=== PATIENT | female | born 1990 | race African-American/Black ===

== ENCOUNTER 2017-09-26 21:43 | Emergency (ER) | payer SELFPAY | END 2017-09-26 22:57 | disposition home or self-care (01) | LOC: ERS 21:43 | DX: S46.912A Strain of unspecified muscle, fascia and tendon at shoulder and upper arm level, left arm, initial encounter (principal); X58.XXXA Exposure to other specified factors, initial encounter | CPT/HCPCS: 99283 ==

== ENCOUNTER 2018-07-19 19:36 | Emergency (ER) | payer SELFPAY ==
[2018-07-19 20:17] LABS: #Eosinphils 0.2 thou/uL (0.0-0.7); #Lymphocytes 2.8 thou/uL (1.20-3.40); #Monocytes 0.7 thou/uL (0.11-0.59); #Neutrophils 8.3 thou/uL (1.40-6.50); %Basophils 0.3 % (0.0-1.0); %Eosinophils 1.4 % (0.0-10.0); %Lymphocytes 23.2 % (21.0-51.0); %Monocytes 6.2 % (0.0-10.0); Hemoglobin 12.7 g/dL (12.0-16.0); Mean Corpuscular HGB CONC 33.4 g/dL (32.0-36.0); Mean Corpuscular Hemoglobin 32.1 pg (27.0-31.0); Mean Corpuscular Volume 96.2 fL (78.0-98.0); Mean Platelet Volume 6.8 fL (7.4-10.4); Platelet Count 355 thou/uL (130-400); RBC Distribution Width 12.5 % (11.5-14.5); Red Blood Cell (RBC) Count 3.96 mill/uL (4.20-5.40)
[2018-07-19 20:44] LABS: ALT (SGPT) Less than 7 U/L (8-55); AST (SGOT) 10 U/L (5-34); Albumin 3.8 g/dL (3.5-5.0); Alkaline Phosphatase 100 U/L (40-150); Anion Gap 12 mmol/L (10-20); BUN (Urea Nitrogen) 11 mg/dL (7.0-18.7); Bilirubin, Total Less than 0.2 mg/dL (0.2-1.2); Calc. Creatinine Clearance 0 mL/min (70-130); Calcium 9.9 mg/dL (7.8-10.44); Carbon Dioxide 23 mmol/L (22-29); Chloride 105 mmol/L (98-107); Estimated GFR-MDRD Greater than 90; Glucose 86 mg/dL (70-105); Potassium 3.5 mmol/L (3.5-5.1); Protein, Total 6.8 g/dL (6.0-8.3); Sodium 136 mmol/L (136-145)
[2018-07-19 21:28] LABS: Bilirubin Negative (Negative); Blood, Urine Negative (Negative); Clarity CLOUDY (Clear); Glucose, Urine (Dipstick) Negative (Negative); Leukocyte Negative (Negative); Nitrite Positive (Negative); Protein, Urine (Dipstick) Negative (Neg-Trace); pH, Urine 6.5 (5.0-9.0)
[2018-07-19 21:29] LABS: Pregnancy Test - Urine (BHCG) POSITIVE (Negative); Pregu Control Background? CLEAR/WHITE (CLR/WHITE); Pregu Control Bar Appear? YES (CONTROL BAR)
[2018-07-19 21:30] LABS: Bacteria/HPF 4+ HPF (None Seen); Hyaline Casts/LPF 0-3 HYALINE CAST LPF (0-3 Hyaline); Pathc Cast-AUWi Flag 0.29 (0-2.49); Squamous Epithelial 0-3 HPF (0-3); WBC/HPF 0-3 HPF (0-3)
[2018-07-19] MEDS ORDERED: Ondansetron PF 4 MG/2 ML Vial ONE (22:07)
[2018-07-19] MEDS ORDERED: cefTRIAXone\\ROCEPHIN 1 GM VIAL ONE (22:07)
[2018-07-19] MEDS ORDERED: Acetaminophen 500 MG TAB ONE (22:31)
--- NOTE | 2018-07-20 08:42 | ULT ---
PRELIMINARY REPORT/[facility]/EMERGENTY AFTER-HOURS PROCEDURE US , Transvaginal EXAM DATE/TIME: 07/20/2018 12:06 AM CLINICAL HISTORY: 27 years old, female; first trimester 8 wks complicated by abdominal or pelvic pain TECHNIQUE: Real-time transvaginal obstetrical ultrasound of the maternal pelvis and a first trimester with image documentation. Transvaginal imaging was used for better evaluation of the fetus and adnexa . COMPARISON: No relevant prior studies available. FINDINGS: Single intrauterine gestational sac with internal crown rump length measurement of 2.01 cm yuan esponding to a gestational age of 8 weeks, 4 days. heart rate is 171 beats per minute. A yolk sac is identified. No subchorionic hemorrhage. Small amount of free pelvic fluid. 5.1 x 3.0 x 3.2 cm left ovarian simple cyst. Otherwise normal normal ovaries. IMPRESSION: 1. Single live intrauterine approximately 8 weeks, 4 days. 2. EDC = 02/25/2019. 3. Small amount of free pelvic fluid. 4. 5.1 x 3.0 x 3.2 cm left ovarian simple cyst. Thank you for allowing us to participate in the care of your patient. Dictated and Authenticated by: Sadiq Love MD 07/20/2018 12:41 AM Central Time ([place] & [place]) FINAL REPORT TRANSVAGINAL OBSTETRICAL ULTRASOUND: TECHNIQUE: Palacio scale, color Doppler, and spectral Doppler images were obtained. FINDINGS: I agree with the preliminary report provided. There is a single live intrauterine gestation with a f etal pole identified. Cardiac activity is noted at 171 b.p.m. [place]-rump length was 2.01 cm giving an estimated gestational age of 8 weeks and 4 days. Estimated due date is 02/25/2019. There is a fair ly prominent simple-appearing cyst within the left ovary measuring 5 cm. There is normal flow to the right and left ovary. Yolk sac is identified. Mild vascularity surrounds the gestational sac likely related to developing placenta. Very mild free fluid is present within the pelvis. IMPRESSION: 1. Single live intrauterine gestation. 2. Mild free fluid in the pelvis. 3. Simple cyst in the left ovary. POS: [facility]
== END 2018-07-20 01:08 | disposition home or self-care (01) ==
LOC: ERS 19:36
DX: O23.41 Unspecified infection of urinary tract in pregnancy, first trimester (principal)
CPT/HCPCS: 36415; 76856; 80053; 81003; 81015; 81025; 83690; 84702; 85025; 86900; 86901; 87077; 87086; 87186; 96361; 96365; 96375; J0696; J2405

== ENCOUNTER 2018-09-22 08:45 | Outpatient (CLI) | payer OTHER ==
--- NOTE | 2018-09-22 09:49 | ULT ---
FOB ultrasound Multiple longitudinal and transverse images of an intrauterine is obtained using multi hert z curvilinear transducer. Real time, color flow and M-mode sonography demonstrates a viable intrauter ine with the fetus in a breech presentation. The placenta is anterior. Cardiac activity qiana sures 147 bpm. Biometrics: Biparietal diameter equals 36 mm =17 weeks 2 days Head circumference 146 mm =17 weeks 6 days. Abdominal circumference equals 119 mm = 17 weeks 5 days. Femur length equals 25 mm = 17 weeks 4 days. Composite equals 17 weeks 5 days with an estimated weight of 201 g. (9%). anatomic survey demonstrates intracranial structures, spine, four-chamber heart, stomach, kidne ys, upper and lower extremities, lips and nose to be grossly unremarkable. Cervical length measures 3.3 cm. Amniotic fluid volume appeared to be within normal limits although ARLEEN definitively was not measured. IMPRESSION: Viable intrauterine .
== END 2018-09-22 08:46 | disposition home or self-care (01) ==
LOC: BICULT 08:45
PROVIDERS: ATTEND Family Medicine
DX: O09.212 Supervision of pregnancy with history of pre-term labor, second trimester (principal); Z3A.17 17 weeks gestation of pregnancy
CPT/HCPCS: 76805

== ENCOUNTER 2018-10-13 09:44 | Outpatient (CLI) | payer MEDICAID ==
--- NOTE | 2018-10-13 11:30 | ULT ---
EXAM: OB ultrasound COMPARISON: 09/22/2018 HISTORY: female. Evaluate size, dates, and anatomy. TECHNIQUE: Multiplanar grayscale and color Doppler transabdominal sonographic images are obtained. FINDINGS: There is a single intrauterine gestation in cephalic presentation. Cardiac Doppler demonstr ates heart tones with a heart rate of 147 beats per minute. The placenta is located anteriorly without evidence of placenta previa. Subjectively, there is a normal amount of amniotic fl uid in amniotic fluid index was not calculated. The cervical length based on transabdominal imaging measures 3.72 centimeters. biometry measurements: BPD 4.86 cm -- 20 weeks 5 days HC 17.95 cm -- 20 weeks 3 days AC 15.22 cm -- 20 weeks 4 days FL 3.39 cm -- 20 weeks 5 days The estimated gestational age by ultrasound is 20 weeks 5 days with an MARICRUZ on02/25/2019. Gestational ag e by the last menstrual period is 20 weeks 6 days. The estimated weight by ultrasound is 359 g (13 ounces). This represents 28 percentile for feta l weight. A 4 chambered heart is visualized. The cerebellum, visualized portions of the spine, kidneys, u rinary bladder, and cord insertion demonstrate a normal sonographic appearance. A three-vessel cord is not visualized, but there is flow on either side of the urinary bladder sugges ting a three-vessel cord.. No anomalies are seen. IMPRESSION: 1. Single intrauterine gestation in cephalic presentation with heart tones documented. Estimat ed gestational age by ultrasound is 20 weeks 5 days. 2. Estimated weight is 359 g (13 ounces).
== END 2018-10-13 09:45 | disposition home or self-care (01) ==
LOC: BICULT 09:44
PROVIDERS: ATTEND Family Medicine
DX: O09.212 Supervision of pregnancy with history of pre-term labor, second trimester (principal); Z3A.20 20 weeks gestation of pregnancy
CPT/HCPCS: 76805

== ENCOUNTER 2018-11-23 01:45 | Day surgery (SDC) | payer OTHER ==
[2018-11-23 02:37] VITALS: BP 126/68; TEMP 98.1; BMI 27.4
--- NOTE | 2018-11-23 06:29 | PRG ---
DATE OF SERVICE: 11/23/2018 PRIMARY OB: Jose Tom MD. CHIEF COMPLAINT: Abdominal pains. HISTORY OF PRESENT ILLNESS: The patient is a 27-year-old G4, P3, female with an intrauterine at 26 weeks and 5 days, who presented to Labor and Delivery after waking up and feeling abdominal cramping. She reports that she has a history of a delivery and has been on progesterone shots this . The patient does report that since coming to the hospital, her cramping has gotten better. Her main concern is that she was told she had a shortened cervix about a month ago and is worried that she may be worsening. The patient denies any recent illness, fever, fall, headache, chest pain, shortness of breath, nausea, vomiting, diarrhea, or constipation. Denies any hip problems, knee problems, muscle weakness. Denies any new rashes. Denies vaginal bleeding or leakage of fluid or urinary urgency or frequency. PAST MEDICAL HISTORY: Negative. PAST SURGICAL HISTORY: Negative. ALLERGIES: NO KNOWN DRUG ALLERGIES. MEDICATIONS: The Pam progesterone shot that she gets on Tuesdays and vitamins. SOCIAL HISTORY: Denies drug, alcohol, tobacco use. OB LABS: Unavailable at time of dictation. REVIEW OF SYSTEMS: Per HPI. PHYSICAL EXAMINATION: VITAL SIGNS: Blood pressure 118/64, heart rate of 100, respiratory rate 18, saturating 98% on room air, temperature 98.1. GENERAL: She appears to be in no acute distress. She is alert and oriented, cooperative, and pleasant to interact with. HEAD: Normocephalic, atraumatic. LUNGS: Clear to auscultation bilaterally. HEART: Has regular rate and rhythm. ABDOMEN: Soft and gravid. EXTREMITIES: Nontender, nonedematous. : Deferred. heart tracing shows the fetus in the baseline in the 140s with moderate long-term variability and appropriate for 26 week gestation. No decelerations. Tocometer does not show any contraction pattern over the course of 2 hours. An ultrasound was ordered for cervical length and resulted in the cervix ranging from 2.6 to 3.5 cm. ASSESSMENT AND PLAN: The patient is a 27-year-old multiparous female with an intrauterine at 26 weeks and 5 days, and a history of delivery on [place]. Cervical length at this time is within normal limits. I was able to share the findings with Ms. Wood and shared with her, at this time there is no evidence that she is at increased risk for early delivery apart from her history. The patient is feeling better and is being discharged to home. Fetus is reassuring for gestational age. She has an appointment with Dr. Jose Tom on Friday, which she has been encouraged to keep. Job ID: [id number]
--- NOTE | 2018-11-23 08:01 | ULT ---
LIMITED OBSTETRICAL ULTRASOUND FOR CERVICAL LENGTH WITH A HISTORY OF LABOR: COMPARISON: Prior exam dated 10/13/2018. FINDINGS: The cervical length was 3.1 cm. Small amount of fluid is seen within the proximal aspect of the endo cervical canal. The fetus is in vertex presentation. IMPRESSION: Limited obstetrical ultrasound for cervical length. The cervical length measures 3.1 cm with the sma ll amount of proximal endocervical funneling. POS: [facility]
== END 2018-11-23 04:34 | disposition home or self-care (01) ==
LOC: L&D/OP 01:45
PROVIDERS: ATTEND Family Medicine
DX: O99.89 Other specified diseases and conditions complicating pregnancy, childbirth and the puerperium (principal); R10.9 Unspecified abdominal pain; Z3A.26 26 weeks gestation of pregnancy; Z87.51 Personal history of pre-term labor
CPT/HCPCS: 99282

== ENCOUNTER 2019-04-20 08:30 | Emergency (ER) | payer OTHER ==
[2019-04-20 08:54] LABS: Bacteria/HPF None Seen HPF (None Seen); Bilirubin Negative (Negative); Blood, Urine 3+ (Negative); Clarity Clear (Clear); Glucose, Urine (Dipstick) Normal (Negative); Leukocyte 75 Leu/uL (Negative); Nitrite Negative (Negative); Protein, Urine (Dipstick) Negative (Neg-Trace); RBC/HPF Greater than 50 HPF (0-3); Urobilinogen Normal mg/dL (Less than 2)
[2019-04-20 09:04] LABS: #Basophils 0.1 thou/uL (0.0-0.2); #Eosinphils 0.1 thou/uL (0.0-0.7); #Lymphocytes 2.9 thou/uL (1.20-3.40); #Monocytes 0.3 thou/uL (0.11-0.59); #Neutrophils 3.1 thou/uL (1.40-6.50); %Basophils 1.1 % (0.0-1.0); %Eosinophils 1.4 % (0.0-10.0); %Monocytes 4.5 % (0.0-10.0); Hemoglobin 13.3 g/dL (12.0-16.0); Mean Corpuscular HGB CONC 32.2 g/dL (32.0-36.0); Mean Platelet Volume 7.5 fL (7.4-10.4); Platelet Count 364 thou/uL (130-400); RBC Distribution Width 13.7 % (11.5-14.5); Red Blood Cell (RBC) Count 4.45 mill/uL (4.20-5.40); White Blood Cell (WBC) Count 6.5 thou/uL (4.8-10.8)
[2019-04-20 09:19] LABS: ALT (SGPT) 7 U/L (8-55); AST (SGOT) 11 U/L (5-34); Albumin 4.2 g/dL (3.5-5.0); Alkaline Phosphatase 106 U/L (40-110); Anion Gap 11 mmol/L (10-20); BUN (Urea Nitrogen) 9 mg/dL (7.0-18.7); Bilirubin, Total 0.3 mg/dL (0.2-1.2); Calc. Creatinine Clearance 0 mL/min (70-130); Calcium 9.1 mg/dL (7.8-10.44); Carbon Dioxide 25 mmol/L (22-29); Chloride 106 mmol/L (98-107); Estimated GFR-MDRD Greater than 90; Globulin 2.8 g/dL (2.4-3.5); Glucose 94 mg/dL (70-105); Lipase 18 U/L (8-78); Potassium 3.7 mmol/L (3.5-5.1); Sodium 138 mmol/L (136-145)
[2019-04-20 09:19] LABS: Pregnancy Test - Urine (BHCG) Negative (Negative); Pregu Control Background? CLEAR/WHITE (CLR/WHITE); Pregu Control Bar Appear? YES (CONTROL BAR); Specific Gravity 1.017 (1.002-1.036)
[2019-04-20] MEDS ORDERED: Ondansetron PF 4 MG/2 ML Vial ONE (09:26)
[2019-04-20] MEDS ORDERED: Ketorolac Tromethamine 30 MG/ML VIAL ONE (09:26)
[2019-04-20] MEDS ORDERED: Dicyclomine 20 MG TAB ONE (09:34)
[2019-04-20] MEDS ORDERED: Ondansetron ODT 4 MG TAB ONE (09:34)
--- NOTE | 2019-04-20 09:49 | ULT ---
RIGHT UPPER QUADRANT ULTRASOUND: Date: 04/20/19 HISTORY: Abdominal pain. FINDINGS: The liver, gallbladder, right kidney, and pancreas appear normal. The common bile duct measures 6-7 m m in diameter. No free fluid is seen in Morison's pouch. IMPRESSION: Unremarkable exam. POS: [facility]
== END 2019-04-20 10:37 | disposition home or self-care (01) ==
LOC: ERS 08:30
DX: R10.84 Generalized abdominal pain (principal); R11.0 Nausea; R10.811 Right upper quadrant abdominal tenderness; R10.816 Epigastric abdominal tenderness
CPT/HCPCS: 36415; 76705; 80053; 81003; 81015; 81025; 83690; 85025; J1885; J2405; Q0162

== ENCOUNTER 2020-04-11 21:50 | Emergency (ER) | payer OTHER ==
[2020-04-11] MEDS ORDERED: Ketorolac Tromethamine 30 MG/ML VIAL ONE (22:48)
== END 2020-04-11 23:11 | disposition home or self-care (01) ==
LOC: ERS 21:50
DX: M25.552 Pain in left hip (principal); X50.0XXA Overexertion from strenuous movement or load, initial encounter; Y99.0 Civilian activity done for income or pay
CPT/HCPCS: 96372; 99283; J1885

== ENCOUNTER 2020-09-27 11:22 | Emergency (ER) | payer OTHER ==
[2020-09-27 12:54] LABS: #Eosinphils 0.1 thou/uL (0.0-0.7); #Lymphocytes 2.4 thou/uL (1.20-3.40); #Monocytes 0.4 thou/uL (0.11-0.59); #Neutrophils 3.9 thou/uL (1.40-6.50); %Basophils 0.5 % (0.0-1.0); %Eosinophils 1.1 % (0.0-10.0); %Lymphocytes 35.4 % (21.0-51.0); %Monocytes 6.1 % (0.0-10.0); Hemoglobin 13.3 g/dL (12.0-16.0); Mean Corpuscular HGB CONC 33.6 g/dL (32.0-36.0); Mean Corpuscular Volume 95.2 fL (78.0-98.0); Mean Platelet Volume 7.4 fL (7.4-10.4); Platelet Count 338 thou/uL (130-400); RBC Distribution Width 12.3 % (11.5-14.5); Red Blood Cell (RBC) Count 4.17 mill/uL (4.20-5.40); White Blood Cell (WBC) Count 6.9 thou/uL (4.8-10.8)
[2020-09-27] MEDS ORDERED: cefTRIAXone\\ROCEPHIN 500 MG VIAL ONE (13:11)
[2020-09-27] MEDS ORDERED: Azithromycin 250 MG TAB ONE (13:11)
[2020-09-27] MEDS ORDERED: Lidocaine 1% PF 5 ML VIAL ONE (13:12)
[2020-09-27] MEDS ORDERED: Lidocaine 1% (PF) 30 ML VIAL ONE (13:13)
[2020-09-27 13:16] LABS: ALT (SGPT) 11 U/L (8-55); AST (SGOT) 14 U/L (5-34); Albumin 3.9 g/dL (3.5-5.0); Alkaline Phosphatase 101 U/L (40-110); Anion Gap 14 mmol/L (10-20); BUN (Urea Nitrogen) 9 mg/dL (7.0-18.7); Bilirubin, Total 0.2 mg/dL (0.2-1.2); Calc. Creatinine Clearance 0 mL/min (70-130); Calcium 8.9 mg/dL (7.8-10.44); Carbon Dioxide 23 mmol/L (22-29); Chloride 104 mmol/L (98-107); Globulin 3.2 g/dL (2.4-3.5); Glucose 99 mg/dL (70-105); Lipase 12 U/L (8-78); Protein, Total 7.1 g/dL (6.0-8.3); Sodium 137 mmol/L (136-145)
[2020-09-27 13:35] LABS: Clarity Clear (Clear); Specific Gravity, Urine 1.021 (1.002-1.036)
[2020-09-27 13:36] LABS: Bilirubin Negative (Negative); Blood, Urine Negative (Negative); Glucose, Urine (Dipstick) Normal (Negative); Ketone, Urine Negative (Negative); Leukocyte Negative Leu/uL (Negative); Nitrite Negative (Negative); Protein, Urine (Dipstick) Negative (Neg-Trace); Urobilinogen Normal mg/dL (Less than 2); pH, Urine 6.5 (5.0-9.0)
[2020-09-27 13:41] LABS: Pregnancy Test - Urine (BHCG) Negative (Negative); Pregu Control Background? CLEAR/WHITE (CLR/WHITE); Pregu Control Bar Appear? YES (CONTROL BAR); Specific Gravity 1.021 (1.002-1.036)
[2020-10-01 16:36] LABS: Chlamydia by PCR Not Detected (NotDetected); GC by PCR Not Detected (NotDetected)
== END 2020-09-27 14:19 | disposition home or self-care (01) ==
LOC: ERS 11:22
DX: R10.30 Lower abdominal pain, unspecified (principal)
CPT/HCPCS: 36415; 80053; 81003; 81025; 83690; 85025; 87480; 87491; 87510; 87591; 87660; 96372; 99284; J0696; J2001

== ENCOUNTER 2022-02-13 18:37 | Emergency (ER) | payer OTHER ==
[2022-02-13 19:13] LABS: #Eosinphils 0.1 thou/uL (0.0-0.7); #Lymphocytes 3.5 thou/uL (1.20-3.40); #Monocytes 0.5 thou/uL (0.11-0.59); #Neutrophils 3.2 thou/uL (1.40-6.50); %Basophils 0.1 % (0.0-1.0); %Eosinophils 1.4 % (0.0-10.0); %Lymphocytes 47.8 % (21.0-51.0); %Monocytes 6.5 % (0.0-10.0); %Neutrophils 44.2 % (42.0-75.0); Hemoglobin 12.4 g/dL (12.0-16.0); Mean Corpuscular HGB CONC 32.9 g/dL (32.0-36.0); Mean Corpuscular Hemoglobin 31.4 pg (27.0-31.0); Mean Corpuscular Volume 95.4 fL (78.0-98.0); Mean Platelet Volume 8.4 fL (7.4-10.4); Platelet Count 296 thou/uL (130-400); RBC Distribution Width 12.3 % (11.5-14.5); Red Blood Cell (RBC) Count 3.94 mill/uL (4.20-5.40); White Blood Cell (WBC) Count 7.3 thou/uL (4.8-10.8)
[2022-02-13 19:36] LABS: ALT (SGPT) Less than 7 U/L (8-55); AST (SGOT) 13 U/L (5-34); Alkaline Phosphatase 113 U/L (40-110); Anion Gap 12 mmol/L (10-20); BUN (Urea Nitrogen) 8 mg/dL (7.0-18.7); Bilirubin, Total 0.2 mg/dL (0.2-1.2); Calc. Creatinine Clearance 0 mL/min (70-130); Calcium 8.7 mg/dL (7.8-10.44); Carbon Dioxide 23 mmol/L (22-29); Chloride 107 mmol/L (98-107); Estimated GFR 99; Globulin 2.9 g/dL (2.4-3.5); Glucose 86 mg/dL (70-105); Lipase 22 U/L (8-78); Protein, Total 6.9 g/dL (6.0-8.3); Sodium 138 mmol/L (136-145)
[2022-02-13 20:46] LABS: Bacteria/HPF 4+ HPF (None Seen); Bilirubin Negative (Negative); Blood, Urine 3+ (Negative); Clarity Turbid (Clear); Glucose, Urine (Dipstick) Normal (Negative); Ketone, Urine Negative (Negative); Leukocyte 500 Leu/uL (Negative); Nitrite Negative (Negative); Pregnancy Test - Urine (BHCG) Negative (Negative); Pregu Control Background? CLEAR/WHITE (CLR/WHITE); Pregu Control Bar Appear? YES (CONTROL BAR); Protein, Urine (Dipstick) 10 mg/dL (Neg-Trace); RBC/HPF 0-3 HPF (0-3); Squamous Epithelial 0-3 HPF (0-3)
== END 2022-02-13 21:24 | disposition home or self-care (01) ==
LOC: ERS 18:37
DX: N39.0 Urinary tract infection, site not specified (principal)
CPT/HCPCS: 36415; 80053; 81003; 81015; 81025; 83690; 85025; 87077; 87086; 87186; 99284

== ENCOUNTER 2022-05-17 09:05 | Emergency (ER) | payer OTHER ==
[2022-05-17] MEDS ORDERED: Ondansetron ODT 4 MG TAB ONE (09:43)
[2022-05-17] MEDS ORDERED: Dicyclomine 20 MG TAB ONE (09:43)
[2022-05-17 10:29] LABS: Bilirubin Negative (Negative); Blood, Urine Negative (Negative); Clarity Clear (Clear); Glucose, Urine (Dipstick) Normal (Negative); Ketone, Urine Negative (Negative); Leukocyte Negative Leu/uL (Negative); Nitrite Negative (Negative); Protein, Urine (Dipstick) 10 mg/dL (Neg-Trace); Specific Gravity, Urine 1.028 (1.002-1.036); Urobilinogen Normal mg/dL (Less than 2); pH, Urine 6.5 (5.0-9.0)
[2022-05-17 10:30] LABS: Pregnancy Test - Urine (BHCG) Negative (Negative); Pregu Control Background? CLEAR/WHITE (CLR/WHITE); Pregu Control Bar Appear? YES (CONTROL BAR); Specific Gravity 1.028 (1.002-1.036)
== END 2022-05-17 10:40 | disposition home or self-care (01) ==
LOC: ERS 09:05
DX: K52.9 Noninfective gastroenteritis and colitis, unspecified (principal)
CPT/HCPCS: 81003; 81025; 99284; Q0162

== ENCOUNTER 2022-08-30 19:46 | Emergency (ER) | payer OTHER ==
[~2022-08-30 19:46] MED LIST: ISOVUE-370 76%-LOCM 1 ML ONE
[2022-08-30 20:30] LABS: Bacteria/HPF None Seen HPF (None Seen); Bilirubin Negative (Negative); Blood, Urine Negative (Negative); Clarity Clear (Clear); Glucose, Urine (Dipstick) Normal (Negative); Ketone, Urine Negative (Negative); Leukocyte 75 Leu/uL (Negative); Mucous/LPF Rare LPF (<2+); Nitrite Negative (Negative); Protein, Urine (Dipstick) 20 mg/dL (Neg-Trace); RBC/HPF 0-3 HPF (0-3); Specific Gravity, Urine 1.021 (1.002-1.036); Squamous Epithelial 0-3 HPF (0-3); Urobilinogen Normal mg/dL (Less than 2); pH, Urine 6.5 (5.0-9.0)
[2022-08-30 21:01] LABS: BHCG - Serum Negative (NEGATIVE); Pregs Control Background? CLEAR/WHITE (CLR/WHITE); Pregs Control Bar Appear? YES (CONTROL BAR)
[2022-08-30 21:03] LABS: #Basophils 0.1 thou/uL (0.0-0.2); #Eosinphils 0.1 thou/uL (0.0-0.7); #Lymphocytes 3.1 thou/uL (1.20-3.40); #Monocytes 0.5 thou/uL (0.11-0.59); %Basophils 0.8 % (0.0-1.0); %Eosinophils 1.7 % (0.0-10.0); %Lymphocytes 35.3 % (21.0-51.0); %Monocytes 5.8 % (0.0-10.0); %Neutrophils 56.4 % (42.0-75.0); Hemoglobin 12.3 g/dL (12.0-16.0); Mean Corpuscular HGB CONC 32.2 g/dL (32.0-36.0); Mean Corpuscular Hemoglobin 31.6 pg (27.0-31.0); Mean Corpuscular Volume 98.1 fl (78.0-98.0); Mean Platelet Volume 6.6 fL (7.4-10.4); Platelet Count 390 10x3/uL (130-400); RBC Distribution Width 12.4 % (11.5-14.5); White Blood Cell (WBC) Count 8.8 10x3/uL (4.8-10.8)
[2022-08-30 21:23] LABS: ALT (SGPT) 9 U/L (8-55); AST (SGOT) 11 U/L (5-34); Alkaline Phosphatase 97 U/L (40-110); Anion Gap 11 mmol/L (10-20); BUN (Urea Nitrogen) 9 mg/dL (7.0-18.7); Bilirubin, Total Less than 0.2 mg/dL (0.2-1.2); Calc. Creatinine Clearance 0 mL/min (70-130); Calcium 9.1 mg/dL (7.8-10.44); Carbon Dioxide 26 mmol/L (22-29); Chloride 105 mmol/L (98-107); Estimated GFR 91; Globulin 2.8 g/dL (2.4-3.5); Glucose 85 mg/dL (70-105); Potassium 3.9 mmol/L (3.5-5.1); Protein, Total 6.8 g/dL (6.0-8.3); Sodium 138 mmol/L (136-145)
[2022-08-30] MEDS ORDERED: Ketorolac Tromethamine 30 MG/ML VIAL ONE (21:29)
[2022-08-30] MEDS ORDERED: FENTANYL 50 MCG/ML 1 ML VIAL ONE (22:41)
== END 2022-08-31 00:48 | disposition home or self-care (01) ==
LOC: ERS 19:46
DX: N83.202 Unspecified ovarian cyst, left side (principal)
CPT/HCPCS: 36415; 74177; 80053; 81003; 81015; 83690; 84703; 85025; 87086; 96374; 96375; J1885; J3010; Q9966

== ENCOUNTER 2024-01-20 17:21 | Emergency (ER) | payer OTHER ==
[2024-01-20 19:07] LABS: #Basophils Less than 0.03 10x3/uL (0.0-0.2); %Basophils 0.2 % (0.0-1.0); %Eosinophils 3.7 % (0.0-10.0); %Lymphocytes 38.4 % (21.0-51.0); %Monocytes 5.2 % (0.0-10.0); %Neutrophils 52.3 % (42.0-75.0); Hematocrit 34.8 % (36.0-47.0); Hemoglobin 11.6 g/dL (12.0-16.0); Mean Corpuscular HGB CONC 33.3 g/dL (32.0-36.0); Mean Corpuscular Hemoglobin 30.9 pg (27.0-31.0); Mean Corpuscular Volume 92.8 fL (78.0-98.0); Mean Platelet Volume 9.4 fL (7.4-10.4); Platelet Count 314 10x3/uL (130-400); RBC Distribution Width 13.5 % (11.5-14.5); Red Blood Cell (RBC) Count 3.75 mill/uL (4.20-5.40)
[2024-01-20 19:28] LABS: ALT (SGPT) 11 U/L (8-55); AST (SGOT) 22 U/L (5-34); Albumin 2.8 g/dL (3.5-5.0); Alkaline Phosphatase 83 U/L (40-110); Anion Gap 12 mmol/L (10-20); BUN (Urea Nitrogen) 9 mg/dL (7.0-18.7); Bilirubin, Total 0.2 mg/dL (0.2-1.2); Calc. Creatinine Clearance 0 mL/min (70-130); Calcium 8.5 mg/dL (7.8-10.44); Carbon Dioxide 24 mmol/L (22-29); Chloride 108 mmol/L (98-107); Estimated GFR 108; Globulin 2.9 g/dL (2.4-3.5); Glucose 95 mg/dL (70-105); Protein, Total 5.7 g/dL (6.0-8.3); Sodium 140 mmol/L (136-145)
[2024-01-20] MEDS ORDERED: Ketorolac Tromethamine 30 MG (1 mL) VIAL ONE (19:42)
== END 2024-01-20 19:54 | disposition home or self-care (01) ==
LOC: ERS 17:21
DX: R07.9 Chest pain, unspecified (principal); I10 Essential (primary) hypertension
CPT/HCPCS: 71046; 80053; 84484; 85025; 93005; 96374; J1885